=== PATIENT | female | born 1960 | race Caucasian/White ===

== ENCOUNTER → 2024-07-01 | Outpatient (CLI) | payer OTHER, SELFPAY ==
--- NOTE | 2024-07-01 13:52 | RAD_ITS ---
EXAM: XR ABDOMEN, 1 VIEW CLINICAL INDICATION: KUB- KIDNEY STONES TECHNIQUE: Frontal supine view of the abdomen/pelvis. COMPARISON: No relevant prior studies available. FINDINGS: GASTROINTESTINAL TRACT: No significant abnormality. Non-obstructive. No bowel or stomach distention. Normal bowel gas pattern. ORGANS: Several calcifications, the largest measuring 3 mm project over the lower pole of the left renal silhouette. BONES/JOINTS: Degenerative changes in the spine. SOFT TISSUES: No acute pathology. VASCULATURE: Phleboliths are present in the pelvis. RAD/Abdomen Single View IMPRESSION: Several calcifications, the largest measuring 3 mm project over the lower pole of the left renal silhouette. This may be nephrolithiasis. Electronically Signed: Henrique Byrnes DO at 22:34 EST ,
== END | disposition home or self-care (01) ==
PROVIDERS: PCP Family Medicine; Referring Provider Urology; Visit Provider Urology
DX: N20.0 Calculus of kidney (principal)